=== PATIENT | female | born 1930 | race Caucasian/White ===

== ENCOUNTER 2019-03-19 08:08 | Emergency (ER) | payer MEDICARE, MEDICAID ==
[~2019-03-19] VITALS: Ht 162.6 cm; Wt 59.9 kg
[2019-03-19 08:08] VITALS: BP_SYST 152
--- NOTE | 2019-03-19 08:08 | NUR ---
BROUGHT IN BY [facility] AND PLACED IN BED #6, REPORT GIVEN TO ROGER
--- NOTE | 2019-03-19 08:10 | NUR ---
Patient presented to ER with C/O weakness, altered. Patient A&Ox1, afebrile, arrived via BLS from home. Daughter of patient arrived with ambulance with patient medical documents and information. I have to explain several times when providing care, bruising bilat to both forearms, left arm dialysis catheter, placed limb alert on left arm, daughter of patient assisting with patient positioning, and vital signs. Daughter of patient states patient was "not herself, found standing in bathroom not acting appropriate. Daughter of patient states pt was recently discharged from [facility].
--- NOTE | 2019-03-19 08:30 | NUR ---
ER at bedside examining patient.
--- NOTE | 2019-03-19 08:40 | NUR ---
Patient refused in/out urine catheter placement for specimen collection. Daughter of patient present, attemted to assisted but also refused when patient was non-compiant. Dr. Rivera made aware.
[2019-03-19 09:28] LABS: HEMATOCRIT 33.3 % (36-48); HEMOGLOBIN 11.1 g/dL (12.0-16.0); MEAN CORPUSCULAR HEMOGLOBIN 38 pg (27-31); MEAN CORPUSCULAR HGB CONC 33 % (32-36); MEAN CORPUSCULAR VOLUME 113 fL (79.0-98.0); PLATELET COUNT (AUTO) 126 K/uL (130-430); RED BLOOD CELL COUNT(AUTO) 2.95 MIL/uL (4.2-6.2); RED CELL DISTRIBUTION WIDTH 26.3 % (9.0-15.0); WHITE BLOOD COUNT (AUTO) 3.6 K/uL (4.8-10.8)
[2019-03-19 09:30] LABS: ANION GAP 18 (5-15); CHLORIDE 100 mmol/L (98-107); CREATININE 4.86 mg/dL (0.55-1.30); GLUCOSE 162 mg/dL (70-99); SODIUM SERUM 139 mmol/L (136-145); UREA NITROGEN, BLOOD 41 mg/dL (8-21)
--- NOTE | 2019-03-19 09:30 | NUR ---
[facility]
[2019-03-19 09:33] LABS: INR 1.2 (0.8-1.2); PROTHROMBIN TIME 11.6 SECS (9.5-12.5)
[2019-03-19 09:42] LABS: ALANINE AMINOTRANSFERASE 13 U/L (12-78); ALBUMIN 2.7 g/dL (3.4-4.8); ASPARTATE AMINOTRANSFERASE 40 U/L (10-37); TOTAL BILIRUBIN 2.3 mg/dL (0.0-1.0)
--- NOTE | 2019-03-19 09:55 | NUR ---
Patient to ER bed 6 from radiology via [facility]
--- NOTE | 2019-03-19 10:10 | NUR ---
Dr. Rivera at bedside giving update on test results, daughter of pt present
[2019-03-19 10:11] LABS: BAND % (MANUAL) 3 % (0-6); BASOPHILS % (MANUAL) 0 % (0-2); EOSINOPHILS % (MANUAL) 1 % (0-7); LYMPHOCYTES % (MANUAL) 17 % (20-46); MONOCYTES % (MANUAL) 4 % (0-11)
--- NOTE | 2019-03-19 10:57 | NUR ---
Dr. Yeung, [place] [facility], paged back to speak to Dr. Rivera regarding pt status.
[2019-03-19] MEDS ORDERED: NACL 0.9% 1,000 ML IV ONE ×2 (11:00)
[2019-03-19] MEDS ORDERED: cefTRIAXone 1 GM in D5W 50 ML IV ONE (11:00)
[2019-03-19] MEDS ORDERED: cefTRIAXone 1 GM VIAL ONE (11:21)
[2019-03-19] MEDS ORDERED: cefTRIAXone 1 GM IVPB PREMIX 50 ML IV ONE (11:27)
--- NOTE | 2019-03-19 12:15 | NUR ---
Patient awake and agitated, request family have conversation stimulation, lights off, patient made comfortable in [facility].
[2019-03-19] MEDS ORDERED: fentaNYL CITRATE/PF 100 MCG/2 ML AMP IVP ONE (12:30)
--- NOTE | 2019-03-19 12:41 | NUR ---
Report to Vinicius VERMA
--- NOTE | 2019-03-19 13:15 | NUR ---
TRANSFER INFO [facility] Accepting: Dr. Chinchilla Report: [phone] ALS ETA [id number] Spoke to Pat
--- NOTE | 2019-03-19 13:24 | NUR ---
Report from Vinicius, patient asleep. family at the bedside.
[2019-03-19] MEDS ORDERED: METOPROLOL TARTRATE 5 MG/5 ML VIAL IVP ONE (14:00)
[2019-03-19 14:20] VITALS: BP_SYST 144
--- NOTE | 2019-03-19 14:20 | NUR ---
Patient to be transferred to [facility]. Is being transferred due to higher level of care. Receiving facility has accepting physician and available space. ER physician has signed transfer form. Patient or responsible republican has agreed to transfer and signed form. Patient belongings inventoried and will be sent with patient. Copy of nursing notes, lab reports, EKG, Physicians Orders and X-rays to be sent with patient. Report called to Kelsea VERMA at receiving facility. Receiving physician is Dr. Chinchilla. [facility] ambulance service has been called for transfer.
== END 2019-03-19 14:20 | disposition short-term general hospital (02) ==
LOC: SED 08:08
DX: A41.9 Sepsis, unspecified organism (principal); G93.41 Metabolic encephalopathy; I12.9 Hypertensive chronic kidney disease with stage 1 through stage 4 chronic kidney disease, or unspecified chronic kidney disease; N18.9 Chronic kidney disease, unspecified; Z88.8 Allergy status to other drugs, medicaments and biological substances
CPT/HCPCS: 36415; 70450; 71045; 80053; 83605; 84484; 85007; 85027; 85610; 85730; 87040; 93005; 96365; 96375; 99291; J0696; J3010; J3490; J7030

== ENCOUNTER 2019-05-12 09:25 | Emergency (ER) | payer MEDICARE, MEDICAID ==
[~2019-05-12] VITALS: Ht 167.6 cm; Wt 70.3 kg
[2019-05-12 09:36] VITALS: BP_SYST 108
--- NOTE | 2019-05-12 09:40 | NUR ---
Patient arrived in the ED accompanied by her daughter, c/o of low blood pressure readings while at the dialysis center. Patient is alert and oriented x2, respirations even and unlabored, speaking in full sentences, VS WNL, able to ambulate with assistance. Denied any respiratory distress at this time. Daughter at bedside. Instructed to notify ED staff if symptoms worsen while waiting to be seen by a provider. Patient verbalized understanding.
--- NOTE | 2019-05-12 09:40 | NUR ---
Patient to ER bed 1 to gown for evaluation. Side rails up. Report given to Nicole VERMA.
--- NOTE | 2019-05-12 09:41 | NUR ---
ER Dr. Rivera at bedside examining patient.
[2019-05-12] MEDS ORDERED: NS 500 ML IV ONE (09:45)
--- NOTE | 2019-05-12 10:00 | NUR ---
# 22 gauge angiocath placed to RAC. Use of asceptic technique. Opsite placed over site. Blood return noted. Blood for lab drawn from site. Flushed with 10 cc of normal saline. No evidence of infiltration noted. Patient tolerated well.
--- NOTE | 2019-05-12 10:05 | NUR ---
X-ray pharmacy technician at bedside.
--- NOTE | 2019-05-12 10:20 | NUR ---
ECG done at bedside as ordered by Dr. Salguero. Report given to MD for review.
[2019-05-12 10:23] LABS: ANION GAP 4 (5-15); CALCIUM 8.4 mg/dL (8.4-11.0); CHLORIDE 102 mmol/L (98-107); CREATININE 3.74 mg/dL (0.55-1.30); GLUCOSE 90 mg/dL (70-99); POTASSIUM 3.5 mmol/L (3.5-5.1); SODIUM SERUM 136 mmol/L (136-145); UREA NITROGEN, BLOOD 23 mg/dL (8-21)
[2019-05-12 10:25] LABS: BASOPHILS % (AUTO) 1.2 % (0.0-2.0); EOSINOPHILS # (AUTO) 0.1 K/uL (0.0-0.4); EOSINOPHILS % (AUTO) 3.5 % (0.0-4.0); HEMATOCRIT 28.6 % (36-48); HEMOGLOBIN 9.9 g/dL (12.0-16.0); LYMPHOCYTES # (AUTO) 0.9 K/uL (1.0-5.5); LYMPHOCYTES % (AUTO) 28.4 % (20.5-51.5); MEAN CORPUSCULAR HEMOGLOBIN 39 pg (27-31); MEAN CORPUSCULAR HGB CONC 34 % (32-36); MEAN CORPUSCULAR VOLUME 114 fL (79.0-98.0); MONOCYTES # (AUTO) 0.2 K/uL (0.0-1.0); MONOCYTES % (AUTO) 6.1 % (1.7-9.3); NEUTROPHILS # (AUTO) 1.9 K/uL (1.8-7.7); NEUTROPHILS % (AUTO) 60.8 % (40.0-70.0); PLATELET COUNT (AUTO) 105 K/uL (130-430); RED BLOOD CELL COUNT(AUTO) 2.52 MIL/uL (4.2-6.2); RED CELL DISTRIBUTION WIDTH 21.7 % (9.0-15.0); WHITE BLOOD COUNT (AUTO) 3.2 K/uL (4.8-10.8)
[2019-05-12 10:28] LABS: INR 1.1 (0.8-1.2); PROTHROMBIN TIME 11.5 SECS (9.5-12.5)
[2019-05-12 10:32] LABS: ALANINE AMINOTRANSFERASE 9 U/L (12-78); ALBUMIN 2.3 g/dL (3.4-4.8); ASPARTATE AMINOTRANSFERASE 40 U/L (10-37); TOTAL BILIRUBIN 3.1 mg/dL (0.0-1.0)
--- NOTE | 2019-05-12 10:55 | NUR ---
# 16 FR In and Out catheter with use of sterile technique. Immediate return of 75 ml clear yellow urine noted. Urine sample collected and sent to lab. Pt tolerated procedure well. Patient unable to toilet self.
[2019-05-12 11:18] LABS: BILIRUBIN,URINE NEGATIVE (NEGATIVE); BLOOD, URINE 2+ (NEGATIVE); COLOR,URINE YELLOW (YELLOW); GLUCOSE,URINE NEGATIVE (NEGATIVE); KETONES,URINE NEGATIVE (NEGATIVE); LEUKOCYTE ESTERASE ,URINE 2+ (NEGATIVE); NITRITE, URINE NEGATIVE (NEGATIVE); PH,URINE 7.5 (5.0-8.0); PROTEIN URINE 2+ (NEGATIVE); UROBILINOGEN,URINE 0.2 (0.2-1.0)
[2019-05-12 11:23] LABS: CLARITY/URINE HAZY (CLEAR)
[2019-05-12 11:29] LABS: RBC,URINE 0-3 /HPF (0-3); WBC,URINE 20-50 /HPF (0-3)
[2019-05-12 11:30] LABS: BACTERIA,URINE MODERATE /HPF (None Seen); MUCUS,URINE 1+ /LPF (None Seen)
--- NOTE | 2019-05-12 11:52 | NUR ---
business office technician at bedside drawing 2nd lactic.
--- NOTE | 2019-05-12 12:25 | NUR ---
Patient to be transferred to [facility]. Is being transferred due to higher level of care. Receiving facility has accepting physician and available space. ER physician has signed transfer form. Patient or responsible republican has agreed to transfer and signed form. Patient belongings inventoried and will be sent with patient. Copy of nursing notes, lab reports, EKG, Physicians Orders and X-rays to be sent with patient. Report called to Marcos at receiving facility. Receiving physician is Dr. Nick. [facility] ETA is 1300.
--- NOTE | 2019-05-12 12:43 | NUR ---
Fam flores in [facility] - 05/12/19 at 1243 by [facility] [employer] arrived to cook pickled meat patient.
--- NOTE | 2019-05-12 12:43 | NUR ---
[facility] arrived to picker tender patient.
[2019-05-12 12:50] VITALS: BP_SYST 116
== END 2019-05-12 12:50 | disposition short-term general hospital (02) ==
LOC: SED 09:25
DX: G93.41 Metabolic encephalopathy (principal); I12.0 Hypertensive chronic kidney disease with stage 5 chronic kidney disease or end stage renal disease; N18.6 End stage renal disease; Z99.2 Dependence on renal dialysis; Z88.8 Allergy status to other drugs, medicaments and biological substances
CPT/HCPCS: 36415; 71045; 80053; 81000; 82140; 83605; 84484; 85025; 85610; 85730; 87040; 87086; 87186; 93005; 99285; J7040